=== PATIENT | female | born 1980 | race Hispanic/Latino ===

== ENCOUNTER 2018-01-19 08:08 | Emergency (ER) | payer BC ==
--- NOTE | 2018-01-19 09:05 | RAD ---
SINGLE VIEW CHEST: Date: 01/19/18 COMPARISON: 03/04/17. HISTORY: Cough. FINDINGS: Single view of the chest shows a normal sized cardiomediastinal silhouette. There is no evidence of c onsolidation, mass, or pleural effusion. The bones are unremarkable. IMPRESSION: No evidence of acute cardiopulmonary disease. POS: [facility]
== END 2018-01-19 09:06 | disposition home or self-care (01) ==
LOC: ERS 08:08
DX: J06.9 Acute upper respiratory infection, unspecified (principal)
CPT/HCPCS: 71045; 94640; J7620

== ENCOUNTER 2018-09-20 14:48 | Emergency (ER) | payer BC ==
--- NOTE | 2018-09-20 16:09 | RAD ---
CHEST 1 VIEW: Date: 09/20/18 INDICATION: Emergency room examination for chest pain. COMPARISON: Prior exam dated 01/19/18. FINDINGS: Lungs are clear. Heart size normal. No acute osseous abnormality is evident. Cholecystectomy clips ar e seen within the right upper quadrant. IMPRESSION: No acute cardiopulmonary abnormality. POS: [facility]
[2018-09-20 16:48] LABS: #Basophils 0.1 thou/uL (0.0-0.2); #Eosinphils 0.4 thou/uL (0.0-0.7); #Lymphocytes 2.8 thou/uL (1.20-3.40); #Monocytes 0.6 thou/uL (0.11-0.59); #Neutrophils 6.9 thou/uL (1.40-6.50); %Basophils 0.7 % (0.0-1.0); %Eosinophils 3.7 % (0.0-10.0); %Lymphocytes 26.2 % (21.0-51.0); %Monocytes 5.8 % (0.0-10.0); %Neutrophils 63.5 % (42.0-75.0); Hemoglobin 13.6 g/dL (12.0-16.0); Mean Corpuscular HGB CONC 32.5 g/dL (32.0-36.0); Mean Corpuscular Hemoglobin 28.9 pg (27.0-31.0); Mean Platelet Volume 8.1 fL (7.4-10.4); Platelet Count 356 thou/uL (130-400); RBC Distribution Width 12.9 % (11.5-14.5); White Blood Cell (WBC) Count 10.8 thou/uL (4.8-10.8)
[2018-09-20 17:20] LABS: ALT (SGPT) 76 U/L (8-55); AST (SGOT) 53 U/L (5-34); Albumin 4.1 g/dL (3.5-5.0); Alkaline Phosphatase 98 U/L (40-150); Anion Gap 14 mmol/L (10-20); BUN (Urea Nitrogen) 13 mg/dL (7.0-18.7); Bilirubin, Total 0.5 mg/dL (0.2-1.2); Calc. Creatinine Clearance 0 mL/min (70-130); Calcium 9.7 mg/dL (7.8-10.44); Carbon Dioxide 22 mmol/L (22-29); Chloride 105 mmol/L (98-107); Estimated GFR-MDRD Greater than 90; Globulin 3.5 g/dL (2.4-3.5); Glucose 89 mg/dL (70-105); Potassium 4.2 mmol/L (3.5-5.1); Protein, Total 7.6 g/dL (6.0-8.3); Sodium 137 mmol/L (136-145)
--- NOTE | 2018-09-23 15:54 | EKG ---
Test Reason : Blood Pressure : / mmHG Vent. Rate : 082 BPM Atrial Rate : 082 BPM P-R Int : 154 ms QRS Dur : 074 ms QT Int : 398 ms P-R-T Axes : 032 002 012 degrees QTc Int : 464 ms Normal sinus rhythm Nonspecific T wave abnormality Prolonged QT Abnormal ECG Confirmed by QIAN CROW, ANTIONE ([id number]), film editor supervisor NIKITA ATKINSON ([id number]) on 09/23/2018 3:53:58 PM Referred By: Confirmed By:ANTIONE LAUGHLIN MD
== END 2018-09-20 20:32 | disposition home or self-care (01) ==
LOC: ERS 14:48
DX: R07.2 Precordial pain (principal)
CPT/HCPCS: 36415; 71045; 80053; 84484; 85025; 93005

== ENCOUNTER 2019-07-10 09:46 | Emergency (ER) | payer BC | END 2019-07-10 12:36 | disposition home or self-care (01) | LOC: ERS 09:46 | DX: J11.1 Influenza due to unidentified influenza virus with other respiratory manifestations (principal) | CPT/HCPCS: 87804; 99283 ==

== ENCOUNTER 2021-12-17 09:45 | Emergency (ER) | payer BC, SELFPAY | END 2021-12-17 10:45 | disposition home or self-care (01) | LOC: ERS 09:45 | DX: U07.1 COVID-19 (principal) | CPT/HCPCS: 87804; 99283; U0003; U0005 ==